=== PATIENT | male | born 1950 | race Caucasian/White ===

== ENCOUNTER 2024-11-09 13:59 | Emergency (ER) | payer OTHER, SELFPAY ==
[2024-11-09 14:06] VITALS: BP 174/89
[2024-11-09 14:30] VITALS: BMI 31.9
[2024-11-09 14:40] LABS: % Basophils 0.4 % (0-2); % Eosinophils 0.6 % (0-6); % Immature Granulocytes 0.1 % (0-0.5); % Lymphocytes 19.5 % (20.5-51.1); % Monocytes 8.9 % (1.7-9.3); % Neutrophils 70.5 % (42.2-75.2); Absolute Lymphocytes 1.4 10^3/uL (1.2-3.4); Absolute Monocytes 0.6 10^3/uL (0.1-0.6); Absolute Neutrophils 4.9 10^3/uL (1.4-6.5); Hematocrit 37.8 % (39.0-52.0); Hemoglobin 12.3 g/dL (13.0-18.0); Mean Corp Hgb Conc. 32.5 g/dL (33.0-37.0); Mean Corpuscular Hgb 29.1 pg (27.0-31.0); Mean Corpuscular Volume 89.6 fL (80.0-94.0); Mean Platelet Volume 10.1 fL (7.4-10.4); Nucleated Red Blood Cells % 0 % (-); Platelet Count 216 10^3/uL (130-400); Red Blood Cell Count 4.22 10^6/uL (4.70-6.10); Red Cell Dist. Width 13.9 % (11.5-14.5); Urine Albumin 2+ (Neg - Trace); Urine Bilirubin Negative (Negative); Urine Character Clear (Clear); Urine Color Yellow; Urine Glucose 1+ (Negative); Urine Ketone Negative (Negative); Urine Leukocyte Negative (Negative); Urine Nitrite Negative (Negative); Urine Occult Blood 2+ (Negative); Urine Urobilinogen Negative (Neg - 1+)
[2024-11-09 14:45] LABS: Urine Squamous Cell 0-2 /LPF (Few); Urine White Cell 0-2 /HPF (0-5)
[2024-11-09 14:59] LABS: ALT (SGPT) 36 U/L (0-50); AST (SGOT) 31 U/L (17-59); Albumin 3.7 g/dl (3.5-5.0); Alkaline Phosphatase 115 U/L (38-126); Blood Urea Nitrogen 18 mg/dl (9-20); Calcium 9.1 mg/dl (8.4-10.2); Carbon Dioxide 25 mmol/L (22-30); Chloride 108 mmol/L (98-107); Estimated Creatinine Clearance 55 ml/min; Glucose 187 mg/dl (70-99); Lipase 10 U/L (23-300); Potassium 3.8 mmol/L (3.5-5.1); Sodium 142 mmol/L (135-145); Total Bilirubin 0.9 mg/dl (0.2-1.3); Total Protein 6.4 g/dl (6.3-8.2); eGFR 57.29
--- NOTE | 2024-11-09 15:03 | EDRN ---
Report to JAMARI Kent
--- NOTE | 2024-11-09 15:12 | ED.GENMED ---
History of Present Illness
<EMETERIO Herzog - Last Filed: 11/09/24 15:34>
General
Chief Complaint: Flank Pain
Source: patient
Exam Limitations: none
Time Seen by Provider: 11/09/24 14:44
History of Present Illness
History of Present Illness:
74 y/o male with a PMH of diabetes, HTN, BPH, hyperlipidemia presenting to the ED c/o right flank pain. Pt states he had a sensation of 'flank discomfort' about 3 weeks ago that resolved within 4 hours of onset and has not had any symptoms since
then until 1 am this morning. Pt reports sudden onset right flank pain that woke him up from his sleep, denies pain radiation. Reports associated nausea, dysuria, and frequency since symptom onset this morning. Pt has a hx of kidney and bladder
stones, last stone was in 2015, states this is typically how it felt in the past. Took 2 tablets of hydrocodone and 1 tablet of Tylenol at 7 am with slight relief. Pt denies fevers, chills, rashes, chest pain, SOB, abdominal pain, vomiting,
incontinence, hematuria.
<Steffen Kim DO - Last Filed: 11/09/24 17:28>
History of Present Illness
History of Present Illness:
74 y/o male with a PMH of diabetes, HTN, BPH, hyperlipidemia presenting to the ED c/o right flank pain. Pt states he had a sensation of 'flank discomfort' about 3 weeks ago that resolved within 4 hours of onset and has not had any symptoms since
then until 1 am this morning. Pt reports sudden onset right flank pain that woke him up from his sleep, denies pain radiation. Reports associated nausea, dysuria, and frequency since symptom onset this morning. Pt has a hx of kidney and bladder
stones, last stone was in 2015, states this is typically how it felt in the past. Took 2 tablets of hydrocodone and 1 tablet of Tylenol at 7 am with slight relief. Pt denies fevers, chills, rashes, chest pain, SOB, abdominal pain, vomiting,
incontinence, hematuria.
74-year-old male presents with right flank pain. Agree with above. Long history of stones. Follows with urology. pain has resolved
Past History
<EMETERIO Herzog - Last Filed: 11/09/24 15:34>
Past History
ED Past Medical History: HTN, Hypercholesterolemia, NIDDM, Other (BPH) and Other (IBS)
Review of Systems
<EMETERIO Herzog - Last Filed: 11/09/24 15:34>
Review of Systems
Allergies reviewed?: Yes
Constitutional: Reports no symptoms
Respiratory: Reports no symptoms
Cardiac: Reports no symptoms
ABD/GI: Reports nausea
: Reports dysuria, frequency and flank pain (Right)
Musculoskeletal: Reports no symptoms
Skin: Reports no symptoms
Phy Exam
<EMETERIO Herzog - Last Filed: 11/09/24 15:34>
General Physical Exam
General Presentation: well appearing and no apparent distress
General age: appears stated age
General Skin: warm and dry
General Habitus: elderly and obese
General Mental: alert
General Hydration: appears well hydrated
ENT Exam
ENT Exam: normocephalic
Cardiovascular Exam
Cardiovascular Exam: regular rate/rhythm, no gallop, no murmur and normal peripheral pulses
Pulmonary Exam
Pulmonary Exam: lungs clear, no respiratory distress and no cough
Gastrointestinal Exam
Gastrointestinal Exam: normal bowel sounds, non tender, soft, no pulsatile mass, non distended, no cva tenderness and other (abdominal hernia)
Palpation: generalized: No tenderness
Genitourinary Exam Male
Exam Male: no CVAT
Neurological Exam
Neurological Exam: alert and oriented x3
Skin Exam
Skin Exam: normal color, warm/dry and no rash
<Steffen Kim DO - Last Filed: 11/09/24 17:28>
Physical Exam
Physical Exam:
CONSTITUTIONAL Vital signs reviewed, Patient alert and oriented to person, place and time. Well-appearing
HEAD atraumatic, normocephalic.
EYES eyelids normal to inspection, Extraocular muscles intact, Conjunctiva normal, Sclera normal.
NECK normal range of motion, Trachea midline, no jugular venous distention.
RESP no respiratory distress
BACK No obvious deformities
UPPER EXTREMITY Gross Range of motion normal, gross motor strength normal
LOWER EXTREMITY Gross range of motion normal, Gross motor strength normal
NEURO Speech normal, No focal motor deficits include, [place] coma scale 15, Memory normal, Cranial Nerves intact to screening exam.
SKIN Skin warm, dry, and normal in color.
PSYCHIATRIC Patient oriented to person place and time, Normal affect.
Course
<EMETERIO Herzog - Last Filed: 11/09/24 15:34>
Orders/Labs/Results
Orders:
Orders
11/09/24 14:27
IV Insert/Care/Rem.- Treatment PRN
11/09/24 14:29
Complete Blood Count/With Diff Urgent
Comprehensive Metabolic Panel Urgent
Lipase Urgent
Urinalysis Reflex To Culture Urgent
Date Specimen was Collected: 11/09/24
Time Specimen was Collected: 14:27
Urine Microscopic Reflex Cult Urgent
11/09/24 15:09
CT Abd/pel Without Iv Or Oral Urgent
Comment:
Reason For Exam: R flank pain
Abnormal Lab Results
11/09/24
14:29
RBC 4.22 L 10^6/uL
(4.70-6.10)
Hgb 12.3 L g/dL
(13.0-18.0)
Hct 37.8 L %
(39.0-52.0)
MCHC 32.5 L g/dL
(33.0-37.0)
Lymphocytes % 19.5 L %
(20.5-51.1)
Chloride 108 H mmol/L
(98-107)
Glucose 187 H mg/dl
(70-99)
Lipase 10 L U/L
(23-300)
Ur Occult Blood Reflex 2+ A
(Negative)
Urine RBC 3-6 A /HPF
(0-2)
Urine Glucose 1+ A
(Negative)
Urine Albumin (Reflex) 2+ A
(Neg - Trace)
11/09/24 14:29
11/09/24 14:29
Vital Signs
Initial and Last Documented VS:
Initial Vital Signs
Temp Pulse Resp BP Pulse Ox
97.6 F 76 16 174/89 97
11/09/24 14:06 11/09/24 14:06 11/09/24 14:06 11/09/24 14:06 11/09/24 14:06
Last Documented Vital Signs
Temp Pulse Resp BP Pulse Ox
97.6 F 71 18 154/86 97
11/09/24 14:06 11/09/24 15:33 11/09/24 15:33 11/09/24 15:33 11/09/24 15:33
<Steffen Kim, - Last Filed: 11/09/24 17:28>
Orders/Labs/Results
Orders:
Orders
11/09/24 14:27
IV Insert/Care/Rem.- Treatment PRN
11/09/24 14:29
Complete Blood Count/With Diff Urgent
Comprehensive Metabolic Panel Urgent
Lipase Urgent
Urinalysis Reflex To Culture Urgent
Date Specimen was Collected: 11/09/24
Time Specimen was Collected: 14:27
Urine Microscopic Reflex Cult Urgent
11/09/24 15:09
CT Abd/pel Without Iv Or Oral Urgent
Comment:
Reason For Exam: R flank pain
Abnormal Lab Results
11/09/24
14:29
RBC 4.22 L 10^6/uL
(4.70-6.10)
Hgb 12.3 L g/dL
(13.0-18.0)
Hct 37.8 L %
(39.0-52.0)
MCHC 32.5 L g/dL
(33.0-37.0)
Lymphocytes % 19.5 L %
(20.5-51.1)
Chloride 108 H mmol/L
(98-107)
Glucose 187 H mg/dl
(70-99)
Lipase 10 L U/L
(23-300)
Ur Occult Blood Reflex 2+ A
(Negative)
Urine RBC 3-6 A /HPF
(0-2)
Urine Glucose 1+ A
(Negative)
Urine Albumin (Reflex) 2+ A
(Neg - Trace)
11/09/24 14:29
11/09/24 14:29
Vital Signs
Initial and Last Documented VS:
Initial Vital Signs
Temp Pulse Resp BP Pulse Ox
97.6 F 76 16 174/89 97
11/09/24 14:06 11/09/24 14:06 11/09/24 14:06 11/09/24 14:06 11/09/24 14:06
Last Documented Vital Signs
Temp Pulse Resp BP Pulse Ox
97.6 F 71 18 154/86 97
11/09/24 14:06 11/09/24 15:33 11/09/24 15:33 11/09/24 15:33 11/09/24 15:33
Miguel Angellt;Steffen Kim, DO - Last Filed: 11/09/24 17:28>
MDM/Problems Addressed
Differential Diagnosis Includes:
AAA, ureterolithiasis, pyelonephritis
MDM/Problems Addressed:
Ureteral colic, uncontrolled hypertension
<Steffen Kim DO - Last Filed: 11/09/24 17:28>
*Pulse Oximetry
Patient hypoxic: no
*Critical Care Note
Total Time (30-74mins, 75-104mins- exclusive of procedures): Not Applicable
Data Reviewed
Source: patient
Prescriptions/Medications Considered But Not Given:
Consider antibiotics if no signs of UTI. Symptoms have resolved
<Steffen Kim DO - Last Filed: 11/09/24 17:28>
Patient Management
Escalation/DeEscalation of care consider admission/obs:
Patient feels better. Already has Flomax at home. Long history of stones and will refer to urology for follow-up. Currently has a urologist but prefers to follow with someone new
ED Attending Note
<EMETERIO Herzog - Last Filed: 11/09/24 15:34>
-
Portions of this chart may have been created with voice recognition software.� Occasional wrong word or��sound alike� substitutions may have occurred due to the inherent limitations of voice recognition software.
<Steffen Kim DO - Last Filed: 11/09/24 17:28>
ED Attending Note
Patient seen and examined by attending physician: Yes
I performed the substantive portion of visit, reviewed & personally made and approve the management plan that is documented in note by myself or LYLE.: Yes
Discharge Plan
Departure
Patient Disposition: Home (Routine Discharge)
Date of Disposition: 11/09/24
Time of Disposition: 17:27
Patient with high blood pressure during this ER visit?: Yes
Discharge Problem:
Renal colic, Bladder calculus
Instructions: Kidney Stones (DC), BLOOD PRESSURE
Referrals:
Ernesto Russell MD [Active] -
Colby Mcginnis MD [Family Provider] -
Activity Restrictions/Additional Instructions:
Please see urology in follow-up in the next 3 to 5 days. Please continue your Flomax at night. Return immediately for fevers, worsening pain, vomiting or any other concerns.
Interventions
Interventions:
*Risk Screen - Suicide Last Done: 11/09/24 14:30
*General Assessment Last Done: 11/09/24 14:30
*Neglect/Abuse Screening Last Done: 11/09/24 14:30
*ED- Fall Risk Assessment Last Done: 11/09/24 14:30
*ED COVID-19 Vaccine History Last Done: 11/09/24 14:30
BC-Jtykjm-Qxjshtinwl Assessment Last Done: 11/09/24 14:58
ED-Male Genitourinary Assessment Last Done: 11/09/24 14:58
Discharge Date and Time
Print Language: ICELANDIC
[2024-11-09 15:33] VITALS: BP 154/86
== END 2024-11-09 17:48 | disposition home or self-care (01) ==
LOC: EMR 13:59
PROVIDERS: EMERGENCY PHYSICIAN Emergency Medicine; FAMILY PHYSICIAN Family Medicine
DX: N21.0 Calculus in bladder (principal); N20.0 Calculus of kidney; E11.9 Type 2 diabetes mellitus without complications; E78.00 Pure hypercholesterolemia, unspecified; I10 Essential (primary) hypertension; N40.0 Benign prostatic hyperplasia without lower urinary tract symptoms
CPT/HCPCS: 99284; 74176; 80053; 81003; 81015; 83690; 85025